=== PATIENT | female | born 1995 ===

== ENCOUNTER 2017-12-12 18:47 | Emergency (ER) | payer SELFPAY ==
[2017-12-12 20:00] LABS: BASO # 0.1 K/uL (0.0-0.2); BASO % 1.2 % (0.0-2.0); EOS % 0.8 % (0.0-4.0); HEMOGLOBIN 13.2 g/dL (11.0-16.0); LYMPH % 42.4 % (20.0-40.0); MEAN CELL VOLUME 87.6 fL (81.0-99.0); MEAN CORPUSCULAR HEMOGLOBIN 30.1 pg (27.0-31.0); MEAN CORPUSCULAR HGB CONC 34.4 g/dL (33.0-37.0); MONO # 0.3 K/uL (0.0-0.8); MONO % 7.1 % (0.0-10.0); NEUT # 2.3 K/uL (1.8-7.0); NEUT % 48.5 % (50.0-75.0); NRBC % 0.1 % (0.0-2.0); RBC 4.38 Mil/uL (3.80-5.20); RED CELL DISTRIBUTION WIDTH 14.1 % (11.5-14.5); WHITE BLOOD COUNT 4.7 K/uL (4.8-10.8)
--- NOTE | 2017-12-12 20:01 | C.PDOC ---
History Of Present Illness Patient is a 22 y/o female who presents to the ED with mother s/p questionable seizure. Mother as a witness, patient was getting left ear pierced and upon finishing, patient passed out; patient became unconscious and experienced body shaking with jaw clenched. EMS was called and patient was brought to ED for evaluation. Patient denies recalling incident but admits to similar incident in June 2017, where she did not get evaluated. Denies any urinary incontinence. No other physical complaints at this time. Time Seen by Provider: 12/12/17 19:15 Chief Complaint (Nursing): Seizure History Per: Patient, Family (mother) History/Exam Limitations: no limitations Recent Seizure Activity Began: Unknown Recent travel outside of the [place]: No Past Medical History Reviewed: Historical Data, Nursing Documentation, Vital Signs Vital Signs: Last Vital Signs Temp 98.4 F 12/12/17 20:29 Pulse 77 12/12/17 20:29 Resp 15 12/12/17 20:29 BP 122/52 L 12/12/17 20:29 Pulse Ox 100 12/12/17 20:29 - Medical History PMH: Hypercholesterolemia, Seizures (similair event in 2016) Surgical History: No Surg Hx Family History: States: No Known Family Hx - Social History Hx Tobacco Use: No Hx Alcohol Use: No Hx Substance Use: No - Immunization History Hx Tetanus Toxoid Vaccination: No Hx Influenza Vaccination: No Hx Pneumococcal Vaccination: No Review Of Systems Neurological: Positive for: Other (syncope) Physical Exam - Physical Exam Appears: Well, Non-toxic, No Acute Distress Skin: Normal Color, Warm, Dry Head: Atraumatic, Normacephalic, Other (mild bruising to left forehead, no gross deformity) Eye(s): bilateral: Normal Inspection, PERRL, EOMI Oral Mucosa: Moist Chest: Symmetrical Cardiovascular: Rhythm Regular, No Murmur Respiratory: Normal Breath Sounds, No Rales, No Rhonchi, No Wheezing Gastrointestinal/Abdominal: Soft, No Tenderness Neurological/Psych: Oriented x3, Normal Speech, Normal Cognition ED Course And Treatment - Laboratory Results Result Diagrams: 12/12/17 19:49 12/12/17 19:49 ECG: Interpreted By Me, Viewed By Me ECG Rhythm: Sinus Rhythm Interpretation Of ECG: normal intervals, normal axis, no st/t wave abnormalities Rate From EC (bpm) - CT Scan/US CT Head Other Rad Studies (CT/US): Interpreted By Me, Read By Radiologist CT/US Interpretation: EXAM: CT Head Without Intravenous Contrast. EXAM DATE/ TIME: 12/12/17 (7:42pm). CLINICAL HISTORY: 22 year old female with dizziness. TECHNIQUE: Axial computed tomography images of the head without intravenous contrast. All CT scans at this facility use one or more dose reduction techniques, viz.: automated exposure. control; ma/kV adjustment per patient size (including targeted exams where dose is matched to. indication; i.e. head) ; or iterative reconstruction technique. COMPARISON: No relevant prior studies available. FINDINGS: Brain: Unremarkable. No acute hemorrhage. No significant white matter disease. No cerebral. edema. Ventricles: Unremarkable. No ventriculomegaly. Bones/joints: Unremarkable. No acute fracture. Soft tissues: Unremarkable. Sinuses: Unremarkable as visualized. No acute sinusitis. Mastoid air cells: Unremarkable as visualized. No mastoid effusion. IMPRESSION: No acute intracranial pathology is appreciated. Thank you for allowing us to participate in the care of your patient. Progress Note: EKG, head CT, blood work, UA, and glucose ordered. Urine administered. Medical Decision Making Medical Decision Making: Patient assessment: syncope with questionable seizure. Case discussed with Dr. Garcia who agrees to discharge patient home. Secondary to positive test, Dr. Garcia does not wish to start any seizure medications. Patient is advised to follow up in his office or at clinic. Patient denies any vaginal bleeding, abdominal pain, or other complaints at this time. Patient to be discharged and advised to follow up as planned. Diagnosis: vasovago syncope and . Disposition Discussed With .: Rodney Garcia Doctor Will See Patient In The: Office Counseled Patient/Family Regarding: Studies Performed, Diagnosis, Need For Followup - Disposition Referrals: Rodney Garcia MD [Staff Provider] - [facility] [Outside] Disposition: HOME/ ROUTINE Disposition Time: 09:41 Condition: STABLE Additional Instructions: follow up with Dr. Garcia and medical clinic in 2 days call to make an appointment drink plenty of fluids rest tylenol as needed for pain return to hospital if symptoms worsens or progress Instructions: Tests, Nutrition Before and During , Vasovagal Response Forms: [facility] (Vietnamese), General Discharge Instructions - Clinical Impression Clinical Impression: , Vasovagal syncope - Scribe Statement The provider has reviewed the documentation as recorded by the Scribe Annie Gonzalez All medical record entries made by the Scribe were at my direction and personally dictated by me. I have reviewed the chart and agree that the record accurately reflects my personal performance of the history, physical exam, medical decision making, and the department course for this patient. I have also personally directed, reviewed, and agree with the discharge instructions and disposition.
[2017-12-12 20:09] LABS: ALB/GLOB RATIO 1.1 (1.0-2.1); ALBUMIN 4.1 g/dL (3.5-5.0); CALCIUM 8.5 mg/dl (8.6-10.4); GFR AFRICAN-AMERICAN > 60; GFR NON-AFRICAN AMERICAN > 60
[2017-12-12] MEDS ORDERED: Bacitracin 500 Units/gm Oint Foilpak UD ONE ×2 (20:35→21:49)
[2017-12-12 20:41] LABS: SQUAMOUS EPITHIAL 4 /hpf (0-5); URINE BILIRUBIN NEGATIVE (NEGATIVE); URINE BLOOD NEGATIVE (NEGATIVE); URINE CLARITY Hazy (Clear); URINE COLOR Yellow (YELLOW); URINE GLUCOSE (UA) NORMAL (Normal); URINE PROTEIN NEGATIVE (NEGATIVE)
[2017-12-12 20:43] LABS: URINE LEUKOCYTE ESTERASE TRACE Leu/uL (Negative)
[2017-12-12 20:46] LABS: ALT/SGPT 10 U/L (9-52); AST/SGOT 29 U/L (14-36); BLOOD UREA NITROGEN 9 mg/dL (7-17)
[2017-12-12 21:57] VITALS: BP 136/62; PULSE 98; RESP 20; TEMP 98.1; O2SAT 98
--- NOTE | 2017-12-13 10:13 | CT ---
PROCEDURE: CT HEAD WITHOUT CONTRAST. HISTORY: dizziness COMPARISON: None available. TECHNIQUE: Axial computed tomography images were obtained through the head/brain without intravenous contrast. Radiation dose: Total exam DLP = 1575.5 mGy-cm. This CT exam was performed using one or more of the following dose reduction techniques: Automated exposure control, adjustment of the mA and/or kV according to patient size, and/or use of iterative reconstruction technique. FINDINGS: HEMORRHAGE: No acute parenchymal, subarachnoid or extra-axial hemorrhage. BRAIN: Ventricular and sulcal size are within range of normal for this patient's stated age. VENTRICLES: Unremarkable. No hydrocephalus. CALVARIUM: There are no acute calvarial fractures. The the allUnremarkable. PARANASAL SINUSES: Unremarkable as visualized. No significant inflammatory changes. MASTOID AIR CELLS: Unremarkable as visualized. No inflammatory changes. OTHER FINDINGS: None. IMPRESSION: Normal CT of the Head.
== END 2017-12-12 21:56 | disposition home or self-care (01) ==
LOC: C.ER 18:47
DX: O26.90 Pregnancy related conditions, unspecified, unspecified trimester (principal); R55 Syncope and collapse; Z3A.00 Weeks of gestation of pregnancy not specified